=== PATIENT | female | born 1950 | race Caucasian/White ===

== ENCOUNTER → 2019-10-03 | Outpatient (CLI) | payer MEDICARE, OTHER ==
[~2019-10-03] MED LIST: AMLODIPINE BESYL5 MG PO; NORCO 7.5-3251 EACH PO; PREMARIN PO; PRILOSEC OTC20 MG PO; TYLENOL
--- NOTE | 2019-10-10 08:22 | Diagnostic Imaging Report ---
#[id number] - MGSCRBIL #BILATERAL DIGITAL SCREENING MAMMOGRAM WITH CAD: 10/03/2019 CLINICAL: Routine screening. Comparison is made to exams dated: 05/22/2017 mammogram and 03/18/2014 mammogram - [facility]. Current study contains 8 films. The tissue of both breasts is heterogeneously dense. This may lower the sensitivity of mammography. Current study was also evaluated with a Computer Aided Detection (CAD) system. Bilateral prepectoral breast implants are intact. No significant masses, calcifications, or other findings are seen in either breast. IMPRESSION: BENIGN There is no mammographic evidence of malignancy. A 1 year screening mammogram is recommended. The patient will be notified by letter of the results. ADIEL GREY M.D. ct/penrad:10/09/2019 15:54:11 [employer] Dba: Lin [id number])([place]), [facility] letter sent: Normal Exam Mammogram BI-RADS: 2 Benign
== END ==
LOC: MAMMO 09:59
PROVIDERS: ATTEND Family Medicine
DX: Z12.31 Encounter for screening mammogram for malignant neoplasm of breast (principal)
CPT/HCPCS: 77067

== ENCOUNTER → 2020-11-30 | Outpatient (CLI) | payer MEDICARE, OTHER | LOC: MAMMO 08:41 | PROVIDERS: ATTEND Family Medicine | DX: Z12.31 Encounter for screening mammogram for malignant neoplasm of breast (principal) | CPT/HCPCS: 77067 ==

== ENCOUNTER → 2021-09-06 | Outpatient (CLI) | payer MEDICARE, OTHER | LOC: RAD 10:37 | PROVIDERS: ATTEND Family Medicine | DX: M25.531 Pain in right wrist (principal) ==

== ENCOUNTER → 2022-07-11 | Outpatient (CLI) | payer MEDICARE, OTHER | LOC: MAMMO 10:59 | PROVIDERS: ATTEND Family Medicine | DX: Z12.31 Encounter for screening mammogram for malignant neoplasm of breast (principal) | CPT/HCPCS: 77067 ==

== ENCOUNTER 2024-05-25 09:17 | Inpatient (IN) | payer MEDICARE, OTHER ==
[2024-05-25] VITALS (8 sets, daily range): BP systolic 107–126; BP diastolic 56–67; PULSE 81–88; RESP 16–20; TEMP 97.9–99.1; O2SAT 96–99
[~2024-05-25] VITALS: Ht 172.7 cm; Wt 58.5 kg
[2024-05-25] MEDS: ONDANSETRON HCL INJ 2MG/ML 2ML 2 MG/ML VIAL IV STA (09:56)
[2024-05-25] MEDS: SODIUM CHLORIDE 0.9% 1000ML 1,000 ML IV STA (09:56)
[2024-05-25 09:58] LABS: BASOPHILS % 0.2 % (0.0-1.0); BILIRUBIN,URINE MODERATE (NEGATIVE); CLARITY,URINE SL CLOUDY (CLEAR); COLOR,URINE YELLOW (YELLOW); EOSINOPHILS % 0.1 % (0.0-6.0); GLUCOSE, URINE NEGATIVE (NEGATIVE); HEMATOCRIT 39.3 % (34.2-44.1); HEMOGLOBIN 13.2 g/dL (12.0-16.0); KETONES,URINE 2+ (NEGATIVE); LEUKOCYTE ESTERASE ,URINE NEGATIVE (NEGATIVE); LYMPHOCYTES # (AUTO) 0.4 (1.0-3.2); LYMPHOCYTES % 4.5 % (18.0-39.1); MEAN CORPUSCULAR HEMOGLOBIN 29.8 pg (28-32); MEAN CORPUSCULAR HGB CONC 33.6 g/dL (31-35); MEAN CORPUSCULAR VOLUME 88.7 fL (81-99); MONOCYTES # (AUTO) 0.4 (0.2-0.8); MONOCYTES % 4.3 % (4.4-11.3); NEUTROPHILS # (AUTO) 8.1 (2.1-6.9); NEUTROPHILS % 90.2 % (38.7-80.0); NITRITE,URINE NEGATIVE (NEGATIVE); PH,URINE 6 (5 - 7); PLATELET COUNT 283 x10e3/uL (140-360); PROTEIN,URINE DIPSTICK 2+ (NEGATIVE); RED BLOOD COUNT 4.43 x10e6/uL (3.6-5.1); RED CELL DISTRIBUTION WIDTH 12.6 % (11.7-14.4); URINE UROBILINOGEN 0.2 mg/dL (0.2 - 1); WHITE BLOOD COUNT 9.03 x10e3/uL (4.8-10.8)
[2024-05-25] MEDS: DICYCLOMINE HCL 20 MG/2 ML VIAL IM ONE (09:59)
[2024-05-25 10:12] LABS: AMORPHOUS SEDIMENT,URINE MODERATE (FEW); BACTERIA,URINE MODERATE /HPF; EPITHELIAL CELLS,URINE FEW /LPF; RBC,URINE 0-5 /HPF (0-5)
[2024-05-25 10:18] LABS: ANION GAP 14.4 mmol/L (8-16); POTASSIUM 3.4 mmol/L (3.0-5.1)
[2024-05-25 10:19] LABS: ALBUMIN 3.7 g/dL (3.3-5.5); ALBUMIN/GLOBULIN RATIO 1.1 (0.8-2.0); BILIRUBIN,TOTAL 0.9 mg/dL (0.2-1.6); CALCIUM 8.7 mg/dL (8.0-10.3); TOTAL PROTEIN 7.2 g/dL (6.4-8.1)
[2024-05-25] MEDS ORDERED: IOPAMIDOL 370 MG/ML 100 ML INFUS..BTL INJ ONE (10:31)
[2024-05-25] MEDS: SODIUM CHLORIDE 0.9% 1000ML 1,000 ML IV SCH (11:55)
[2024-05-25] MEDS: Morphine 4mg INJECTION 4 MG/ML INJ IV PRN (13:36)
[2024-05-25] MEDS ORDERED: ACETAMINOPHEN 325 MG TAB PO PRN (16:15)
[2024-05-25] MEDS ORDERED: POTASSIUM CHLORIDE 20 MEQ TAB CR PO PRN (16:15)
[2024-05-25] MEDS ORDERED: LIDOCAINE 4% PATCH TP PRN (16:15)
[2024-05-25] MEDS ORDERED: DEXTROSE 50% SYRINGE 50 ML IV PRN (16:15)
[2024-05-25] MEDS ORDERED: BENZONATATE 100 MG CAP PO PRN (16:15)
[2024-05-25] MEDS ORDERED: MELATONIN 5 MG TABLET PO PRN (16:15)
[2024-05-25] MEDS ORDERED: HYDRALAZINE HCL 20 MG/ML VIAL IV PRN (16:15)
[2024-05-25] MEDS ORDERED: DOCUSATE SODIUM 100 MG CAP PO PRN (16:15)
[2024-05-25] MEDS ORDERED: ALBUTEROL/IPRATROPIUM 3 ML NEB NEB PRN (16:15)
[2024-05-25] MEDS ORDERED: SIMETHICONE 80 MG CHEW PO PRN (16:15)
[2024-05-25] MEDS ORDERED: DIPHENHYDRAMINE HCL 25 MG CAP PO PRN (16:15)
[2024-05-25] MEDS ORDERED: ENOXAPARIN SOD INJ 40 MG/0.4 ML SYR SC SCH (17:00)
[2024-05-25] MEDS: D5NS/KCL 20MEQ 1,000 ML IV SCH (18:24)
[2024-05-26] VITALS (9 sets, daily range): BP systolic 116–143; BP diastolic 57–76; PULSE 72–90; RESP 15–20; TEMP 97.9–98.6; O2SAT 93–100
[2024-05-26 06:10] LABS: BASOPHILS % 0.4 % (0.0-1.0); EOSINOPHILS % 0.4 % (0.0-6.0); HEMATOCRIT 33.1 % (34.2-44.1); HEMOGLOBIN 10.8 g/dL (12.0-16.0); LYMPHOCYTES # (AUTO) 0.5 (1.0-3.2); LYMPHOCYTES % 9.4 % (18.0-39.1); MEAN CORPUSCULAR HEMOGLOBIN 29.6 pg (28-32); MEAN CORPUSCULAR HGB CONC 32.6 g/dL (31-35); MEAN CORPUSCULAR VOLUME 90.7 fL (81-99); MONOCYTES # (AUTO) 0.6 (0.2-0.8); MONOCYTES % 11.4 % (4.4-11.3); NEUTROPHILS # (AUTO) 4.3 (2.1-6.9); NEUTROPHILS % 77.7 % (38.7-80.0); PLATELET COUNT 252 x10e3/uL (140-360); RED BLOOD COUNT 3.65 x10e6/uL (3.6-5.1); RED CELL DISTRIBUTION WIDTH 12.6 % (11.7-14.4); WHITE BLOOD COUNT 5.52 x10e3/uL (4.8-10.8)
[2024-05-26 06:29] LABS: ANION GAP 12.7 mmol/L (8-16); CALCIUM 8.1 mg/dL (8.4-10.2); CREATININE, SERUM 0.71 mg/dL (0.57-1.11)
[2024-05-26 06:31] LABS: POTASSIUM 2.7 mmol/L (3.5-5.1)
[2024-05-26] MEDS: PANTOPRAZOLE SOD 40 MG TABEC PO SCH (07:30)
[2024-05-26] MEDS: POTASSIUM CHLORIDE 20MEQ/100ML 100 ML IV SCH (09:04)
[2024-05-26] MEDS ORDERED: BUPIVACAINE 0.25% 30ML SDV ONE (12:17)
[2024-05-26] MEDS ORDERED: ROCURONIUM BROMIDE 10 MG/ML 5ML VIAL IV ONE (12:50)
[2024-05-26] MEDS ORDERED: LIDOCAINE HCL 2% LOCAL INJ 5 ML SDV VIAL INJ ONE (12:50)
[2024-05-26] MEDS ORDERED: PROPOFOL IV EMULSION 10 MG/ML 20 ML VIAL ONE (12:50)
[2024-05-26] MEDS ORDERED: SEVOFLURANE INHAL SOLN 250 ML PEN BTL ONE (12:50)
[2024-05-26] MEDS ORDERED: ACETAMINOPHEN 1000 MG/100 ML IV ONE (12:50)
[2024-05-26] MEDS ORDERED: ONDANSETRON HCL INJ 2MG/ML 2ML 2 MG/ML VIAL ONE (12:50)
[2024-05-26] MEDS ORDERED: SUCCINYLCHOLINE CHLORIDE 20 MG/ML 10ML VIAL ONE (12:50)
[2024-05-26] MEDS ORDERED: DEXAMETHASONE SOD PHOS INJ 4 MG/ML SDV ONE (12:50)
[2024-05-26] MEDS ORDERED: FENTANYL CITRATE/PF 100MCG/2 ML INJ ONE (12:51)
[2024-05-26] MEDS ORDERED: ACETAMINOPHEN 1000 MG/100 ML IV PRN (14:45)
[2024-05-26] MEDS: ONDANSETRON HCL INJ 2MG/ML 2ML 2 MG/ML VIAL ONE (15:13)
[2024-05-26] MEDS: PROMETHAZINE HCL (IM) 25 MG/ML VIAL IM ONE (15:37)
[2024-05-26] MEDS: METOCLOPRAMIDE HCL 10 MG/2ML VIAL ONE (15:37)
[2024-05-26] MEDS: PIPERACILLIN/TAZOBACTAM 3.375 GM VIAL ONE (20:50)
[2024-05-26] MEDS: SODIUM CHLORIDE 0.9% 100 ML ONE (20:50)
[2024-05-26] MEDS: ONDANSETRON HCL INJ 2MG/ML 2ML 2 MG/ML VIAL IV PRN (22:42)
[2024-05-26] MEDS: HYDROMORPHONE 1MG/1ML INJ IV PRN (22:42)
[2024-05-27] VITALS (8 sets, daily range): BP systolic 110–137; BP diastolic 56–75; PULSE 69–80; RESP 15–20; TEMP 97.5–98.8; O2SAT 93–99
[2024-05-27 05:50] LABS: BASOPHILS % 0.4 % (0.0-1.0); HEMATOCRIT 35.3 % (34.2-44.1); HEMOGLOBIN 11.4 g/dL (12.0-16.0); LYMPHOCYTES # (AUTO) 0.4 (1.0-3.2); LYMPHOCYTES % 4.9 % (18.0-39.1); MEAN CORPUSCULAR HEMOGLOBIN 29.6 pg (28-32); MEAN CORPUSCULAR HGB CONC 32.3 g/dL (31-35); MEAN CORPUSCULAR VOLUME 91.7 fL (81-99); MONOCYTES # (AUTO) 0.7 (0.2-0.8); MONOCYTES % 8.8 % (4.4-11.3); NEUTROPHILS # (AUTO) 6.6 (2.1-6.9); NEUTROPHILS % 84.7 % (38.7-80.0); PLATELET COUNT 275 x10e3/uL (140-360); RED BLOOD COUNT 3.85 x10e6/uL (3.6-5.1); RED CELL DISTRIBUTION WIDTH 12.8 % (11.7-14.4); WHITE BLOOD COUNT 7.73 x10e3/uL (4.8-10.8)
[2024-05-27 06:11] LABS: ANION GAP 11.7 mmol/L (8-16); CALCIUM 8.2 mg/dL (8.4-10.2); CREATININE, SERUM 0.71 mg/dL (0.57-1.11); POTASSIUM 3.7 mmol/L (3.5-5.1)
[2024-05-28] VITALS (11 sets, daily range): BP systolic 125–162; BP diastolic 69–89; PULSE 72–85; RESP 16–18; TEMP 97.6–98.2; O2SAT 91–100
[2024-05-28 05:39] LABS: BASOPHILS % 0.2 % (0.0-1.0); EOSINOPHILS # (AUTO) 0.2 (0.0-0.4); EOSINOPHILS % 2.9 % (0.0-6.0); HEMATOCRIT 35.1 % (34.2-44.1); HEMOGLOBIN 11.3 g/dL (12.0-16.0); LYMPHOCYTES # (AUTO) 1.2 (1.0-3.2); LYMPHOCYTES % 21.5 % (18.0-39.1); MEAN CORPUSCULAR HEMOGLOBIN 29.7 pg (28-32); MEAN CORPUSCULAR HGB CONC 32.2 g/dL (31-35); MEAN CORPUSCULAR VOLUME 92.4 fL (81-99); MONOCYTES # (AUTO) 0.8 (0.2-0.8); MONOCYTES % 14.4 % (4.4-11.3); NEUTROPHILS # (AUTO) 3.4 (2.1-6.9); NEUTROPHILS % 57.9 % (38.7-80.0); PLATELET COUNT 308 x10e3/uL (140-360); RED CELL DISTRIBUTION WIDTH 13.2 % (11.7-14.4); WHITE BLOOD COUNT 5.78 x10e3/uL (4.8-10.8)
[2024-05-28 06:22] LABS: ANION GAP 12.2 mmol/L (8-16); CALCIUM 8.2 mg/dL (8.4-10.2); CREATININE, SERUM 0.66 mg/dL (0.57-1.11)
[2024-05-28 06:36] LABS: POTASSIUM 3.2 mmol/L (3.5-5.1)
[2024-05-28] MEDS: DIPHENHYDRAMINE HCL INJ 50 MG/ML VIAL IV ONE (06:38)
[2024-05-28] MEDS: BISACODYL 10 MG SUPP PR ONE (08:59)
[2024-05-28] MEDS: POTASSIUM CHLORIDE 20MEQ/100ML 100 ML IV ONE (11:42)
[2024-05-28] MEDS: BISACODYL 10 MG SUPP PR SCH (21:24)
[2024-05-29] VITALS (11 sets, daily range): BP systolic 133–171; BP diastolic 71–94; PULSE 67–83; RESP 12–19; TEMP 97.5–98.1; O2SAT 94–98
[2024-05-29 05:42] LABS: BASOPHILS % 0.6 % (0.0-1.0); EOSINOPHILS # (AUTO) 0.2 (0.0-0.4); EOSINOPHILS % 3.4 % (0.0-6.0); HEMATOCRIT 34.8 % (34.2-44.1); HEMOGLOBIN 11.4 g/dL (12.0-16.0); LYMPHOCYTES # (AUTO) 1.1 (1.0-3.2); LYMPHOCYTES % 17.5 % (18.0-39.1); MEAN CORPUSCULAR HGB CONC 32.8 g/dL (31-35); MEAN CORPUSCULAR VOLUME 91.6 fL (81-99); MONOCYTES # (AUTO) 0.7 (0.2-0.8); MONOCYTES % 11.7 % (4.4-11.3); NEUTROPHILS # (AUTO) 3.9 (2.1-6.9); NEUTROPHILS % 62.9 % (38.7-80.0); PLATELET COUNT 321 x10e3/uL (140-360); RED CELL DISTRIBUTION WIDTH 13.1 % (11.7-14.4); WHITE BLOOD COUNT 6.18 x10e3/uL (4.8-10.8)
[2024-05-29 06:23] LABS: ANION GAP 11.1 mmol/L (8-16); BLOOD UREA NITROGEN < 5 mg/dL (7-26); CARBON DIOXIDE 27 mmol/L (22-29); CHLORIDE 106 mmol/L (98-107); CREATININE, SERUM 0.64 mg/dL (0.57-1.11); EST GLOMERULAR FILTRATION RATE 92 ML/MIN (>=60); GLUCOSE 110 mg/dL (74-118); SODIUM 141 mmol/L (136-145)
[2024-05-29 06:25] LABS: BUN/CREATININE RATIO 8 (6-25); POTASSIUM 3.1 mmol/L (3.5-5.1)
[2024-05-29] MEDS ORDERED: MAGNESIUM OXID400 MG PO (09:26)
[2024-05-29] MEDS ORDERED: FOSAMAX70 MG PO (09:26)
[2024-05-29] MEDS: POTASSIUM BICARBONATE/CIT AC 20 MEQ TABLET.EFF PO ONE (13:28)
[2024-05-29] MEDS: TRAMADOL HCL 50 MG TAB PO PRN (20:25)
[2024-05-30 03:21] VITALS: BP 134/75; PULSE 68; RESP 18; TEMP 97.8; O2SAT 97
[2024-05-30 08:27] VITALS: BP 126/70; PULSE 65; RESP 18; TEMP 97.5; O2SAT 96
[2024-05-30] MEDS: BISACODYL 10 MG SUPP PR ONE (08:46)
[2024-05-30 09:00] VITALS: BP 126/70; PULSE 65; RESP 18; TEMP 97.5; O2SAT 96
[2024-05-30 09:06] VITALS: PULSE 65; RESP 18; O2SAT 96
[2024-05-30 11:33] VITALS: BP 139/70; PULSE 70; RESP 18; TEMP 97.4; O2SAT 97
[2024-05-30 15:21] VITALS: BP 154/90; PULSE 84; RESP 18; TEMP 97.6; O2SAT 95
== END 2024-05-30 16:03 | disposition home or self-care (01) | DRG 399 ==
LOC: ER 09:23 → ERHOLD 11:31 → MED/SURG 13:10
PROVIDERS: ADMIT Internal Medicine; ATTEND Internal Medicine
PROC: 0W9G40Z Drainage of Peritoneal Cavity with Drainage Device, Percutaneous Endoscopic Approach (ICD-10-PCS; 2024-05-26)
PROC: 0DTJ4ZZ Resection of Appendix, Percutaneous Endoscopic Approach (ICD-10-PCS; principal; 2024-05-26 12:26)
DX: K35.33 Acute appendicitis with perforation, localized peritonitis, and gangrene, with abscess (principal); E86.0 Dehydration; I10 Essential (primary) hypertension; E87.6 Hypokalemia; R21 Rash and other nonspecific skin eruption; K21.9 Gastro-esophageal reflux disease without esophagitis; Z11.52 Encounter for screening for COVID-19; Z90.49 Acquired absence of other specified parts of digestive tract; Z90.710 Acquired absence of both cervix and uterus; Z88.1 Allergy status to other antibiotic agents; Z88.2 Allergy status to sulfonamides; Z88.5 Allergy status to narcotic agent
CPT/HCPCS: 36415; 71045; 74177; 80048; 80053; 81001; 83690; 83735; 85025; 88304; 94799; 99252; 99284; C1766; J0330; J1100; J1170; J1200; J2001; J2185; J2270; J2405; J2543; J2550; J2765; J3480; J7030; J7050; Q9967; U0002

== ENCOUNTER → 2024-08-22 | Outpatient (REF) | payer MEDICARE, OTHER ==
[~2024-08-22] MED LIST changes: +FOSAMAX70 MG PO; +MAGNESIUM OXID400 MG PO
== END ==
LOC: MAMMO 08:27
PROVIDERS: ATTEND Family Medicine
DX: Z12.31 Encounter for screening mammogram for malignant neoplasm of breast (principal)
CPT/HCPCS: 77067

== ENCOUNTER → 2025-05-14 | Outpatient (REF) | payer MEDICARE, OTHER | LOC: EDSTATUS 15:00 → RESP 15:08 | PROVIDERS: ATTEND Family Medicine | DX: R06.02 Shortness of breath (principal); J44.9 Chronic obstructive pulmonary disease, unspecified; M41.84 Other forms of scoliosis, thoracic region; Z87.891 Personal history of nicotine dependence | CPT/HCPCS: 94060; 94727; 94729 ==